=== PATIENT | female | born 1980 | race Caucasian/White ===

== ENCOUNTER 2020-11-17 06:08 | Day surgery (SDC) | payer BC ==
[2020-11-11 16:54] LABS: BASOPHILS % (AUTO) 0.2 % (0-1); EOSINOPHILS # (AUTO) 0.1 X10'3 (0-0.9); EOSINOPHILS % (AUTO) 0.6 % (0-6); LYMPHOCYTES # (AUTO) 2.5 X10'3 (1.1-4.8); MEAN CORPUSCULAR HEMOGLOBIN 30.4 PG (27.0-31.0); MEAN CORPUSCULAR HGB CONC 34.1 g/dL (33.0-36.5); MEAN CORPUSCULAR VOLUME 89.2 FL (78-98); MEAN PLATELET VOLUME 9.3 FL (7.4-10.4); MONOCYTES # (AUTO) 0.5 X10'3 (0-0.9); NEUTROPHILS # (AUTO) 6.4 X10'3 (1.8-7.7); NEUTROPHILS % (AUTO) 68.2 % (42-75); PRE OP HEMATOCRIT 41.2 % (35.0-45.0); PRE OP HEMOGLOBIN 14.1 g/dL (12.0-16.0); PRE OP PLATELET COUNT 272 X10'3 (140-440); RED BLOOD COUNT 4.62 X10'6 (4.20-5.60); RED CELL DISTRIBUTION WIDTH 13.2 % (11.5-14.5)
[2020-11-11 17:04] LABS: PRE OP PROTIME 10.4 SECONDS (9.0-12.0)
[2020-11-11 17:06] LABS: ALBUMIN 3.9 G/DL (3.4-5.0); ALKALINE PHOSPHATASE 115 IU/L (46-116); BLOOD UREA NITROGEN 14 MG/DL (7-18); BUN/CREATININE RATIO 13.5 (6.6-38.0); CALCIUM 8.7 MG/DL (8.5-10.1); CHLORIDE 105 MMOL/L (99-107); CREATININE 1.04 MG/DL (0.40-0.90); PRE OP ALT 47 U/L (30-65); PRE OP ANION GAP 12 (8-16); PRE OP AST 28 U/L (10-37); PRE OP BILIRUB, TOTAL 0.5 MG/DL (0.0-1.0); PRE OP GLUCOSE 97 MG/DL (70-104); PRE OP SODIUM 144 MMOL/L (135-145); TOTAL CARBON DIOXIDE 27.1 MMOL/L (24-32); eGFR 59 ML/MIN
[2020-11-11 17:18] LABS: PRE OP POTASSIUM 3.3 MMOL/L (3.4-5.1)
[~2020-11-17] VITALS: Ht 170.2 cm; Wt 106.1 kg
[2020-11-17] VITALS (9 sets, daily range): BP systolic 125–135; BP diastolic 71–88
[~2020-11-17 06:08] MED LIST: NO HOME MEDS; famotidine 20mg tablet PO ONE; oxymetazoline 15 ML nasal spray NS PRN; ringers solution, lacted 1,000 ML IV SCH
[2020-11-17] MEDS ORDERED: cocaine 4% topical solution 4ml bottle ONE (06:41)
[2020-11-17] MEDS ORDERED: cefTAZidime 1gm inj ONE (06:42)
[2020-11-17] MEDS ORDERED: LIDOcaine 1% W/epiNEPHrine 1:100,000 20ml vial ONE (06:42)
[2020-11-17] MEDS ORDERED: mupirocin 2% ointment 22GM ONE (06:42)
[2020-11-17] MEDS ORDERED: oxymetazoline 15 ML nasal spray NS ONE ×2 (06:42→09:35)
[2020-11-17] MEDS ORDERED: sevoflurane 250ml liquid IH ONE (08:03)
[2020-11-17] MEDS ORDERED: midazolam 1 mg/ML 2ml injection ONE (08:11)
[2020-11-17] MEDS ORDERED: fentaNYL/PF 50MCG/1 ML 2ML syringe ONE (08:11)
[2020-11-17] MEDS ORDERED: LIDOcaine 2% (20mg/ml) 5ml vial ONE (08:12)
[2020-11-17] MEDS ORDERED: propofol inj 20 ML IV ONE (08:12)
[2020-11-17] MEDS ORDERED: ondansetron/PF 4mg/2ml inj ONE (08:13)
[2020-11-17] MEDS ORDERED: dexamethasone sod phosphate 4mg/ml inj. ONE (08:13)
[2020-11-17] MEDS ORDERED: proCHLORperazine 10 MG/2 ml inj IV PRN (08:50)
[2020-11-17] MEDS ORDERED: ringers solution, lacted 1,000 ML IV SCH (08:50)
[2020-11-17] MEDS ORDERED: meperidine/PF 25mg/ml syringe IV PRN ×3 (08:50)
[2020-11-17] MEDS ORDERED: morphine 2 MG/ML inj. syringe IV PRN (08:50)
[2020-11-17] MEDS ORDERED: morphine 4 MG/ML inj SYRINge IV PRN (08:50)
[2020-11-17] MEDS ORDERED: ondansetron/PF 4mg/2ml inj IV PRN (08:50)
[2020-11-17] MEDS ORDERED: cocaine 4% topical solution 4ml bottle TP ONE (09:33)
[2020-11-17] MEDS ORDERED: LIDOcaine 1% W/epiNEPHrine 1:100,000 20ml vial IJ ONE (09:34)
[2020-11-17] MEDS ORDERED: mupirocin 2% ointment 22GM TP ONE (09:35)
--- NOTE | 2020-11-17 10:35 | NUR ---
ADMITTED TO PACU FROM OR ACCOMPANIED BY ANESTHESIA. INTIAL PHYSICAL ASSESSMENT DONE AND RECORDED. REPORT RECEIVED FROM ANESTHESIA.
[2020-11-17] MEDS ORDERED: salt irrigation nasal spray 45 ML SPRAY NS PRN (10:55)
--- NOTE | 2020-11-17 12:00 | NUR ---
DISCHARGE CRITERIA MET, DISCHARGE INSTRUCTIONS GIVEN, DEMONSTRATES VERBAL UNDERSTANDING. DISCHARGED HOME IN GOOD CONDITION.
== END 2020-11-17 12:00 | disposition home or self-care (01) ==
LOC: PAS 06:08
PROVIDERS: ATTEND Otolaryngology
DX: J34.2 Deviated nasal septum (principal); J34.3 Hypertrophy of nasal turbinates; J32.8 Other chronic sinusitis; J33.8 Other polyp of sinus; G47.30 Sleep apnea, unspecified; E66.01 Morbid (severe) obesity due to excess calories; Z68.36 Body mass index [BMI] 36.0-36.9, adult; Z20.822 Contact with and (suspected) exposure to COVID-19; Z79.01 Long term (current) use of anticoagulants; Z79.899 Other long term (current) drug therapy; Z98.890 Other specified postprocedural states; Z90.710 Acquired absence of both cervix and uterus
CPT/HCPCS: 30140; 31240; 31253; 31259; 31267; 36415; 61782; 80053; 82948; 85025; 85576; 85610; 85730; 93005; A6402; C9250; J0713; J1100; J2001; J2250; J2405; J2704; J3010; J7040; J7120; U0003; U0005; A4618; A7000